=== PATIENT | male | born 1975 | race Caucasian/White ===

== ENCOUNTER → 2017-12-24 | Outpatient (CLI) | payer MEDICAID ==
[~2017-12-24] MED LIST: CEPHALEXIN500 M1 PO; DOXYCYCLINE 10100 MG PO; NORCO 325 MG-51 TAB PO
[2017-12-24 15:58] LABS: BASO # 0.1 (0.0-0.2); BASO % 0.5 % (0.0-2.0); EOS # 0.3 (0.0-0.7); EOS % 3.5 % (0-4.0); GRAN # 5.2 (1.4-6.5); GRAN % 53.7 % (42.2-75.2); HEMATOCRIT 43.7 % (42.0-52.0); HEMOGLOBIN 14.8 g/dl (13.5-18.0); LYMPH # 3.4 (1.2-3.4); LYMPH % 34.7 % (20.0-51.0); MEAN CELL VOLUME 90 fl (80.0-100.0); MEAN CORPUSCULAR HEMOGLOBIN 30 pg (27.0-31.0); MEAN CORPUSCULAR HGB CONC 34 g/dl (33.0-37.0); MONO # 0.7 (0.1-0.6); PLATELET COUNT 249 K/mm3 (130-400); RED BLOOD COUNT 4.88 M/mm3 (4.20-5.60); REDCELL DISTRIBUTION WIDTH-CV 13.7 % (11.5-14.5)
[2017-12-24 16:07] LABS: ALANINE AMINOTRANSFERASE 74 U/L (21-72); ALBUMIN 3.8 gm/dL (3.5-5.0); ALKALINE PHOSPHATASE 79 U/L (50-136); ANION GAP 7 mmol/L (7-16); AST,SGOT 88 U/L (15-37); BILIRUBIN,TOTAL 1.1 mg/dL (0.0-1.0); BLOOD UREA NITROGEN 15 mg/dL (9-20); CALCIUM 9.7 mg/dL (8.4-10.2); CARBON DIOXIDE 34 mmol/L (22-30); CHLORIDE 102 mmol/L (98-107); CHOLESTEROL 146 mg/dL (120-200); CHOLESTEROL RISK RATIO 4.4; CREATININE, serum 0.94 mg/dL (0.66-1.25); GLUCOSE 89 mg/dL (74-106); HDL CHOLESTEROL 33 mg/dL; LDL CHOLESTEROL 79 mg/dL; POTASSIUM 4.8 mmol/L (3.4-5.0); SODIUM 142 mmol/L (137-145); TOTAL PROTEIN 7.6 gm/dL (6.4-8.2); TRIGLYCERIDE 170 mg/dL
[2017-12-24 16:12] LABS: C-REACTIVE PROTEIN < 0.5 mg/dL (0.0-0.9)
== END ==
LOC: COL.LAB 12:10
PROVIDERS: Family Medicine
DX: Z13.1 Encounter for screening for diabetes mellitus (principal); R51 Headache; E78.5 Hyperlipidemia, unspecified; F32.9 Major depressive disorder, single episode, unspecified; I10 Essential (primary) hypertension

== ENCOUNTER → 2018-01-27 | Outpatient (CLI) | payer MEDICAID ==
[2018-01-27 17:31] LABS: ALBUMIN 4.2 gm/dL (3.5-5.0); BILIRUBIN,TOTAL 1.6 mg/dL (0.0-1.0); CALCIUM 9.1 mg/dL (8.4-10.2); CREATININE, serum 1.03 mg/dL (0.66-1.25); POTASSIUM 4.1 mmol/L (3.4-5.0); TOTAL PROTEIN 7.5 gm/dL (6.4-8.2)
== END ==
LOC: COL.LAB 16:44
PROVIDERS: Family Medicine
DX: R74.0 Nonspecific elevation of levels of transaminase and lactic acid dehydrogenase [LDH] (principal)

== ENCOUNTER → 2018-02-07 | Outpatient (CLI) | payer MEDICAID ==
[2018-02-07 10:17] LABS: PROTHROMBIN TIME 10.9 SECONDS (9.7-12.8)
[2018-02-07 10:21] LABS: ALBUMIN 3.9 gm/dL (3.5-5.0); BILIRUBIN,TOTAL 1.4 mg/dL (0.0-1.0); CALCIUM 8.7 mg/dL (8.4-10.2); CREATININE, serum 0.95 mg/dL (0.66-1.25); POTASSIUM 4.2 mmol/L (3.4-5.0); TOTAL PROTEIN 7.2 gm/dL (6.4-8.2)
[2018-02-07 10:34] LABS: HIV 1/2 Antibodies Non-Reactive; HIV-1p24 Antigen Non-Reactive
== END ==
LOC: COL.RAD 08:59
PROVIDERS: Family Medicine
DX: R74.0 Nonspecific elevation of levels of transaminase and lactic acid dehydrogenase [LDH] (principal); R76.8 Other specified abnormal immunological findings in serum

== ENCOUNTER → 2018-02-09 | Outpatient (CLI) | payer MEDICAID | LOC: COL.LAB 21:57 | DX: Z01.89 Encounter for other specified special examinations (principal) ==

== ENCOUNTER → 2018-02-23 | Outpatient (CLI) | payer MEDICAID | LOC: COL.LAB 09:50 | DX: R74.0 Nonspecific elevation of levels of transaminase and lactic acid dehydrogenase [LDH] (principal); R76.8 Other specified abnormal immunological findings in serum ==

== ENCOUNTER → 2018-04-21 | Outpatient (CLI) | payer MEDICAID ==
[2018-04-21 19:49] LABS: BASO % 0.4 % (0.0-2.0); EOS # 0.2 (0.0-0.7); GRAN # 3.9 (1.4-6.5); GRAN % 52.1 % (42.2-75.2); HEMATOCRIT 47.9 % (42.0-52.0); HEMOGLOBIN 16.1 g/dl (13.5-18.0); LYMPH # 2.8 (1.2-3.4); LYMPH % 36.5 % (20.0-51.0); MEAN CELL VOLUME 90 fl (80.0-100.0); MEAN CORPUSCULAR HEMOGLOBIN 30 pg (27.0-31.0); MEAN CORPUSCULAR HGB CONC 34 g/dl (33.0-37.0); MEAN PLATELET VOLUME 11.2 fl (7.4-10.4); MONO # 0.6 (0.1-0.6); MONO % 7.9 % (1.7-9.3); PLATELET COUNT 266 K/mm3 (130-400); RED BLOOD COUNT 5.33 M/mm3 (4.20-5.60); REDCELL DISTRIBUTION WIDTH-CV 13.4 % (11.5-14.5)
== END ==
LOC: ZCOL.LAB 19:36
PROVIDERS: Family Medicine
DX: K92.1 Melena (principal)

== ENCOUNTER 2019-05-10 16:18 | Emergency (ER) | payer SELFPAY ==
[~2019-05-10] VITALS: Ht 180.3 cm; Wt 90.9 kg
[2019-05-10 16:58] VITALS: BP 125/75; TEMP 98.2
[2019-05-10 18:22] LABS: BASO % 0.3 % (0.0-2.0); EOS # 0.1 (0.0-0.7); EOS % 1.2 % (0-4.0); GRAN # 6.9 (1.4-6.5); GRAN % 66.1 % (42.2-75.2); HEMATOCRIT 44.2 % (42.0-52.0); HEMOGLOBIN 14.8 g/dl (13.5-18.0); LYMPH # 2.7 (1.2-3.4); LYMPH % 25.5 % (20.0-51.0); MEAN CELL VOLUME 90 fl (80.0-100.0); MEAN CORPUSCULAR HEMOGLOBIN 30 pg (27.0-31.0); MEAN CORPUSCULAR HGB CONC 34 g/dl (33.0-37.0); MEAN PLATELET VOLUME 10.2 fl (7.4-10.4); MONO # 0.7 (0.1-0.6); MONO % 6.6 % (1.7-9.3); PLATELET COUNT 253 K/mm3 (130-400); RED BLOOD COUNT 4.89 M/mm3 (4.20-5.60); REDCELL DISTRIBUTION WIDTH-CV 13.5 % (11.5-14.5)
[2019-05-10 18:31] LABS: ALANINE AMINOTRANSFERASE 58 U/L (21-72); ALBUMIN 4.2 gm/dL (3.5-5.0); ALKALINE PHOSPHATASE 53 U/L (50-136); ANION GAP 10 mmol/L (7-16); AST,SGOT 59 U/L (15-37); BILIRUBIN,TOTAL 1.7 mg/dL (0.0-1.0); BLOOD UREA NITROGEN 12 mg/dL (9-20); CALCIUM 9.4 mg/dL (8.4-10.2); CARBON DIOXIDE 24 mmol/L (22-30); CHLORIDE 103 mmol/L (98-107); GLUCOSE 91 mg/dL (74-106); POTASSIUM 3.8 mmol/L (3.4-5.0); SODIUM 137 mmol/L (137-145); TOTAL PROTEIN 7.3 gm/dL (6.4-8.2)
[2019-05-10 18:47] LABS: TROPONIN-I < 0.012 ng/mL (0.000-0.035)
[2019-05-10 19:00] VITALS: PULSE 82
== END 2019-05-10 19:03 | disposition home or self-care (01) ==
LOC: COL.ER 16:18
PROVIDERS: Nurse Practitioner
DX: J06.9 Acute upper respiratory infection, unspecified (principal); F17.210 Nicotine dependence, cigarettes, uncomplicated
CPT/HCPCS: J7030

== ENCOUNTER 2022-08-25 17:19 | Observation (INO) | payer SELFPAY ==
[~2022-08-25] VITALS: Ht 180.3 cm; Wt 94.7 kg
[2022-08-25 17:46] LABS: BASO % 0.2 % (0.0-2.0); EOS # 0.1 K/mm3 (0.0-0.7); EOS % 0.3 % (0.0-4.0); GRAN # 14.9 K/mm3 (1.4-6.5); GRAN % 81.8 % (42.2-75.2); HEMATOCRIT 46.7 % (42.0-52.0); HEMOGLOBIN 16.3 g/dl (13.5-18.0); LYMPH # 2.2 K/mm3 (1.2-3.4); LYMPH % 12.2 % (20.0-51.0); MEAN CELL VOLUME 88 fl (80.0-100.0); MEAN CORPUSCULAR HEMOGLOBIN 31 pg (27-31); MEAN CORPUSCULAR HGB CONC 35 g/dl (33.0-37.0); MEAN PLATELET VOLUME 10.1 fl (7.4-10.4); MONO % 5.2 % (1.7-9.3); PLATELET COUNT 268 K/mm3 (130-400); RED BLOOD COUNT 5.32 M/mm3 (4.20-5.60); REDCELL DISTRIBUTION WIDTH-CV 13.7 % (11.5-14.5)
[2022-08-25 18:04] LABS: ALBUMIN 4.5 gm/dL (3.5-5.0); BILIRUBIN,TOTAL 2.2 mg/dL (0.2-1.2); CALCIUM 10.3 mg/dL (8.4-10.2); CREATININE, serum 1.06 mg/dL (0.72-1.25); POTASSIUM 4.3 mmol/L (3.5-4.5); TOTAL PROTEIN 8.4 gm/dL (6.2-8.1)
[2022-08-25 18:46] LABS: COLLECTION METHOD CLEAN CATCH
[2022-08-25 19:11] LABS: PH 5.5 (5.0-8.5); URINE APPEARANCE Clear (CLEAR/HAZY); URINE COLOR Yellow (YELLOW); URINE KETONE 4+ (NEGATIVE); URINE PROTEIN(semi-quant) 1+ (NEGATIVE)
[2022-08-25 19:12] LABS: URINE BLOOD TRACE-LYSED (NEGATIVE); URINE GLUCOSE Negative (NEGATIVE); URINE NITRATE Negative (NEGATIVE); URINE UROBILINOGEN 0.2 E.U/dL (0.2-1.0)
[2022-08-25 19:20] LABS: MUCOUS Present (NOT PRESENT); SQUAMOUS EPITHELIAL None Seen /hpf (0-10); URINE BACTERIA None Seen /hpf (NONE SEEN)
[2022-08-25 21:55] VITALS: BP 118/76; PULSE 78
--- NOTE | 2022-08-25 21:55 | NUR ---
pt brought to room by bed from pacu. pt a&ox4. vss. x3 lap sites are cdi. pt on 1L nc. pt reports minimal pain. IV in RAC. no needs at this time. call light in reach. admission assessment complete.
[2022-08-25 22:10] VITALS: BP 127/79; PULSE 76
[2022-08-25 22:25] VITALS: BP 122/76; PULSE 68
[2022-08-25 22:40] VITALS: BP 123/76; PULSE 70
[2022-08-25 23:10] VITALS: BP 118/80; PULSE 73
[2022-08-25 23:40] VITALS: BP 121/69; PULSE 66
[2022-08-26 00:40] VITALS: BP 121/42; PULSE 97
[2022-08-26 01:40] VITALS: BP 114/59; PULSE 69
[2022-08-26 04:04] VITALS: BP 103/71; PULSE 76; TEMP 97.8
[2022-08-26 07:18] VITALS: BP 107/60; PULSE 66; TEMP 98.1
--- NOTE | 2022-08-26 08:14 | NUR ---
PATIENT ALERT AND ORIENTED X4. VSS. PATIENT HERE FOR LAP APPY. LAP SITES X3, BANDAID COVERING. PATIENT REPORTS PAIN 3/10, DENIES NEED FOR PAIN MEDICATION. IV TO RIGHT AC, INT, FLUSHES WELL. PATIENT RESTING IN BED AWAITING RIDE. DISCHAGE ORDERS RECEIVED. CALL LIGHT IN REACH.
--- NOTE | 2022-08-26 09:27 | NUR ---
PAtient was admitted to Surgical Unit on 08-25-22. Drawing Supervisor met with PAtient at bedside to conduct Care Managment assessment and discuss discharge planning. PAtient reports that he lives in [place], [place] with family, is not established with PCP or insurance. Patient intends on discharging home today and is not asking for a medication voucher. Per Headlight Adjuster Referral, PAtient stated that he is concerned about his bill due to being self-pay. ANNI contacted Devika with the finance department requesting her follow-up with PAtient.
--- NOTE | 2022-08-26 09:29 | NUR ---
DISCHARGE INSTRUCTIONS PROVIDED. PATIENT EDUCATION GIVEN. IV DC'D. PATIENT INSTRUCTED TO AWAIT PHONE CALL FROM DR BUCK' NURSE TO FOLLOW UP WITH PATIENT. PATIENT REPORTS UNDERSTANDING. PATIENT DENIES ANY QUESTIONS OR CONCERNS.
--- NOTE | 2022-08-26 09:42 | NUR ---
PATIENT ESCORTED OUT
== END 2022-08-26 09:42 | disposition home or self-care (01) ==
LOC: COL.ER 17:19 → SURG 19:32 → COL.ER 20:20 → SURG 08-26 09:42
PROVIDERS: Nurse Practitioner Primary Care; ADMIT Surgery
DX: K35.33 Acute appendicitis with perforation, localized peritonitis, and gangrene, with abscess (principal); F17.210 Nicotine dependence, cigarettes, uncomplicated
CPT/HCPCS: G0378; J1100; J1885; J2405; J2543; J2704; J3010; J7120; Q9967